=== PATIENT | female | born 1950 | race Caucasian/White ===

== ENCOUNTER 2019-02-07 10:48 | Emergency (ER) | payer OTHER ==
[2019-02-07] MEDS ORDERED: ValACYclovir (*) 1 GM TAB PO ONE (11:10)
[2019-02-07] MEDS ORDERED: predniSONE TAB* 50 MG PO ONE (11:11)
--- NOTE | 2019-02-07 11:26 | ED ---
Neurological HPI - HPI Summary HPI Summary: Time seen by provider: [id number]. The patient is a 68 y/o F presenting to [facility] with a chief complaint of sudden onset right facial droop noticed at 0500 this morning. She states she woke up this morning with a crooked mouth, and she was okay when she went to bed last night. 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 She additionally has a swollen eye, but she didn't notice that earlier today before getting to work. No other neurological deficits at this time. Nonsmoker, occasional EtOH, no substance use. - History of Current Complaint Chief Complaint: EDNeurologicalDeficit Stated Complaint: POSS STROKE PER PT Hx Obtained From: Patient Onset/Duration: Sudden Onset, Started hours ago - at 0500 this morning, Still Present Onset Severity: Mild Current Severity: Mild Pain Intensity: 0 Pain Scale Used: 0-10 Numeric Character: Other: - right facial droop Aggravating: Nothing Alleviating: Nothing Associated Signs and Symptoms: Negative: Weakness - Additional Pertinent History Primary Care Physician: DEIRDRE - Allergy/Home Medications Allergies/Adverse Reactions: Allergies Allergy/AdvReac Type Severity Reaction Status Date / Time No Known Allergies Allergy Verified 02/07/19 10:52 Home Medications: Home Medications Insulin NPH Hum/Reg Insulin Hm [Novolin 70-30 Flexpen] 100 unit SQ BID 02/07/19 [History Confirmed 02/07/19] Liraglutide (NF) [Victoza (NF)] 1.2 mg SUBCUT DAILY 02/07/19 [History Confirmed 02/07/19] amLODIPine TAB* [Norvasc 5 mg TAB*] 5 mg PO DAILY 02/07/19 [History Confirmed ] PMH/Surg Hx/FS Hx/Imm Hx Endocrine/Hematology History: Reports: Hx Diabetes - TYPE 2 Denies: Hx Bone Marrow Disease, Hx Sickle Cell Disease, Hx Anemia Cardiovascular History: Reports: Hx Hypertension - ON MEDS GI History: Reports: Hx Gall Bladder Disease - galbladder out february 2014 Denies: Other GI Disorders Musculoskeletal History: Denies: Hx Osteoporosis Sensory History: Reports: Hx Contacts or Glasses - GLASSES Denies: Hx Deafness, Hx Hearing Aid Opthamlomology History: Reports: Hx Contacts or Glasses - GLASSES - Cancer History Hx Chemotherapy: No Hx Radiation Therapy: No - Surgical History Surgery Procedure, Year, and Place: 2009, HYSTERECTOMY, [facility] Hx Anesthesia Reactions: No Infectious Disease History: No Infectious Disease History: Denies: Traveled Outside the [place] in Last 30 Days - Family History Known Family History: Negative: Cardiac Disease, Hypertension, Diabetes - Social History Alcohol Use: None Alcohol Amount: 1-2 PER WEEK Hx Substance Use: No Substance Use Type: Reports: None Hx Tobacco Use: No Smoking Status (MU): Never Smoked Tobacco Do You Chew or Dip Tobacco: No Have You Chewed or Dipped Tobacco in the LAST YEAR: No Have You Smoked in the Last Year: No Review of Systems Positive: Other - swelling of eye Neurological: Other - slight right facial droop Negative: Weakness All Other Systems Reviewed And Are Negative: Yes Physical Exam - Summary Physical Exam Summary: VITAL SIGNS: Reviewed. GENERAL: Patient is a well-developed and nourished female who is lying comfortable in the stretcher. Patient is not in any acute respiratory distress. HEAD AND FACE: No signs of trauma. No ecchymosis, hematomas or skull depressions. No sinus tenderness. EYES: PERRLA, EOMI x 2, No injected conjunctiva, no nystagmus. No photophobia. EARS: Hearing grossly intact. Ear canals and tympanic membranes are within normal limits. MOUTH: Oropharynx within normal limits. NECK: Supple, trachea is midline, no adenopathy, no JVD, no carotid bruit, no c- spine tenderness, neck with full ROM. No meningeal signs, no Kernig's or brudzinskis signs. CHEST: Symmetric, no tenderness at palpation LUNGS: Clear to auscultation bilaterally. No wheezing or crackles. CVS: Regular rate and rhythm, S1 and S2 present, no murmurs or gallops appreciated. ABDOMEN: Soft, non-tender. No signs of distention. No rebound no guarding, and no masses palpated. Bowel sounds are normal. EXTREMITIES: FROM in all major joints, no edema, no cyanosis or clubbing. NEURO: Alert and oriented x 3. Right facial paralysis but no other acute neurological deficits. Speech is normal and follows commands. SKIN: Dry and warm. GCS: 15. Triage Information Reviewed: Yes Vital Signs On Initial Exam: Initial Vitals Temp Pulse Resp BP Pulse Ox 98.3 F 117 18 143/95 99 02/07/19 10:50 02/07/19 10:50 02/07/19 10:50 02/07/19 10:50 02/07/19 10:50 Vital Signs Reviewed: Yes - [place] Coma Scale Best Eye Response: 4 - Spontaneous Best Motor Response: 6 - Obeys Commands Best Verbal Response: 5 - Oriented Coma Scale Total: 15 Diagnostics - Vital Signs Vital Signs Temp Pulse Resp BP Pulse Ox 02/07/19 10:50 98.3 F 117 18 143/95 99 - Laboratory Result Diagrams: 02/07/19 11:23 02/07/19 11:23 Lab Statement: Any lab studies that have been ordered have been reviewed, and results considered in the medical decision making process. - CT Brain CT CT Interpretation Completed By: Radiologist Summary of CT Findings: No acute intracranial pathology. Chronic small vessel ischemic change. ED physician has reviewed this report. NIH Scale - NIH Scale Level of Consciousness: Alert/Keenly Responsive Ask Patient the Month and His/Her Age: Both Correct Ask Pt to Open/Close Eyes and Account General Manager/Release Non-Paretic Hand: Both Correctly Best Gaze (Only Horizontal Eye Movement): Normal Visual Field Testing: No Visual Loss Facial Paresis-Pt to Smile & Close Eyes or Grimace Symmetry: Normal/Symmetrical Motor Function - Right Arm: No Drift-Holds 10 Seconds Motor Function - Left Arm: No Drift-Holds 10 Seconds Motor Function - Right Leg: No Drift-Holds 10 Seconds Motor Function - Left Leg: No Drift-Holds 10 Seconds Limb Ataxia-Must be out of Proportion to Weakness Present: Absent Sensory (Use Pinprick to Test Arms/Legs/Trunk/Face): Normal Best Language (Describe Picture, Name Items): No Aphasia Dysarthria (Read Several Words): Normal Extinction and Inattention: No Abnormality Total Score: 0 Re-Evaluation - Re-Evaluation First Eval Re-Evaluation Time: 13:13 Change: Unchanged Comment: I discussed the results with the patient and discharge home. Course/Dx - Course Assessment/Plan: The patient is a 68 y/o F presenting to [facility] with a chief complaint of sudden onset right facial droop noticed at 0500 this morning. She states she woke up this morning with a crooked mouth, and she was okay when she went to bed last night. 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 She additionally has a swollen eye, but she didn't notice that earlier today before getting to work. No other neurological deficits at this time. Nonsmoker, occasional EtOH, no substance use. Test results without any significant abnormality. Head CT impression: No acute interconnected pathology. Chronic small vessel ischemic changes. Therefore, I believe that the patient has [place] palsy. Therefore the patient was placed on the Valtrex, and Prednisone. The patient also was given an eye patch. At this point I discussed all the findings and test results with the patient. She was instructed to return to the emergency room immediately if any of the symptoms return or worsens. They understand and agree. Neurological exam before discharge : Patient is alert and oriented x3. No acute neurological deficits. Patient vital signs are stable. Patient is to follow up with [facility] in the next 2 3 days. They understand and agree. Plan of care was discussed with the patient, and patient understands and agrees with the plan of care. All questions were answered at patient satisfaction. There were no further complaints or concerns. - Diagnoses Provider Diagnoses: Montes's palsy Discharge - Sign-Out/Discharge Documenting (check all that apply): Patient Departure - Patient will be discharged home. Patient Received Moderate/Deep Sedation with Procedure: No - Discharge Plan Condition: Stable Disposition: HOME Prescriptions: predniSONE TAB* [Deltasone 20 MG TAB*] 60 mg PO DAILY #15 tab ValACYclovir (*) [Valtrex 1 GM(*)] 1 gm PO BID #14 tab Patient Education Materials: Montes Palsy (ED) Referrals: Nivia Castillo MD [Primary Care Provider] - 3 Days Additional Instructions: Please take medication as prescribed. Follow up with your primary care provider in 2-3 days. RETURN TO THE EMERGENCY DEPARTMENT FOR ANY NEW OR WORSENING SYMPTOMS. - Billing Disposition and Condition Condition: STABLE Disposition: Home - Attestation Statements Document Initiated by Eliibe: Yes Documenting Scribe: Ronel Fallon Provider For Whom Jada is Documenting (Include Credential): Dr. Pratik Hernandez MD Scribe Attestation: Ronel Bernal scribed for Dr. Pratik Hernandez MD on 02/07/19 at 1550. Scribe Documentation Reviewed: Yes Provider Attestation: The documentation as recorded by the Ronel amaral accurately reflects the service I personally performed and the decisions made by me, Dr. Pratik Hernandez MD Status of Scribe Document: Viewed
--- OUTSIDE RECORDS SUMMARY | 2019-02-07 11:35 | XMS REPORT | Continuity of Care Document ---
:1950 External Reference #:[id number] Author Name Lashawn Shah Care Team Providers Name Role Phone Nivia Luther MD Primary Care Physician Unavailable Payers Date Identification Numbers Payment Provider Subscriber Expires: 2018 Policy Number: [id number] Medicare Maile Milner PayID: [id number] [address] [place] [address] Policy Number: [id number] [facility] Maile Milner Group Number: [id number] [address] PayID: [id number] [place] [address] Effective: 2014 Policy Number: [id number] [employer] Maile Milner Expires: 2017 PayID: [id number] [address] [address] [place] [address] Advance Directives Description No Information Available Problems Description No Information Family History Date Family Member(s) Observation Comments General Unknown pt was adopted, any family history listed is non-biological Father due to [place] () - in his 50's Siblings 1 1 biological brother of [place] at age 57. 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[employer] [place] ETOH Use Rarely consumes alcohol Tobacco Use Start: Unknown Patient has never smoked Recreational Drug Use Denies Drug Use Smoking Status Reviewed: 01/13/19 Patient has never smoked Exercise Type/Frequency Exercises regularly walks daily for work Allergies, Adverse Reactions, Alerts Description No Known Drug Allergies Medications Active Medications SIG Qnty Indications Ordering Date Provider Novolin 70/30 inject subcutaneously 15ml E11.9 Zaldivarjanett Grant, 01/13/2019 Flexpen 30 minutes before MD breakfast 32 units (70-30)100Unit/ML and 30 minutes before Supn 2nd meal 16 units Enalapril Maleate Take 2 tablets by 180tabs E11.9 [facility], 01/13/2019 mouth daily MD 20mg Tablets Pioglitazone HCL 1 by mouth every day 90tabs E11.9 [facility], 12/13/2018 MD 15mg Tablets Amlodipine Besylate 1 by mouth every day 90tabs E11.9 [facility], 2018 MD 5mg Tablets Victoza inject 1.8 mg once 27ml E11.9 [facility], 11/29/2018 18mg/3ML daily. Solution Pen-Inject Atorvastatin take one tablet daily 90tabs E11.9 [facility], 11/29/2018 Calcium at night. Replaces 40mg script for Tablets Atorvastatin 10 mg Lantus Solostar 46 units daily [facility], 10/26/2018 100Unit/ML Solution Pen-Inject Accu-Chek Soft use twice daily to Unknown Touch Lancets check Blood sugar Misc BD Pen use 1 time daily with Unknown Needle/Mini/Ultra-F basaglar ine/31G X 5mm 31G X 5 mm Misc Freestyle Lite Test test blood sugar 3 300units Zaldivar [facility], times daily and as MD Strips needed Freestyle Lite test blood sugar 3 Unknown Blood Glucose times daily and as Monitoring System needed Device Omeprazole 1 by mouth every day Unknown 40mg Capsules DR Bibiana Seniorokana Take one 90tabs E11.9 Zen Grant MD 12/13/2018 - 100mg Tablets tablet by 12/15/2018 mouth daily Atorvastatin Calcium take 1 tablet 90tabs E11.9 Zen Grant MD 2018 - 10mg Tablets by mouth at 11/29/2018 bedtime Enalapril Maleate 1 by mouth E11.9 Unknown - 20mg every day 01/13/2019 Glipizide 1 by mouth Unknown - 10mg twice a day 12/12/2018 Hydrochlorothiazide 1 by mouth Unknown - every day 11/28/2018 Percocet 1-2 by mouth 30tabs Priya Junior, - 5-325mg Tablets every 6 hours M.D. 11/28/2018 as needed pain Simvastatin 1 by mouth E11.9 Unknown - 20mg Tablets every day 11/29/2018 Immunizations Description No Information Available Vital Signs Date Vital Result Comment 01/13/2019 9:16am Height 62 inches 5'2" Weight 148.00 lb w/o shoes Heart Rate 87 /min BP Systolic Sitting 143 mmHg BP Diastolic Sitting 88 mmHg BMI (Body Mass Index) 27.1 kg/m2 12/13/2018 9:50am Height 62 inches 5'2" Weight 147.00 lb w/ shoes Heart Rate 88 /min BP Systolic Sitting 152 mmHg BP Diastolic Sitting 91 mmHg BMI (Body Mass Index) 26.9 kg/m2 11/29/2018 9:57am Height 62 inches 5'2" Weight 146.00 lb w/ shoes Heart Rate 115 /min BP Systolic Sitting 157 mmHg BP Diastolic Sitting 91 mmHg BP Systolic Recheck 132 mmHg BP Diastolic Recheck 82 mmHg BMI (Body Mass Index) 26.7 kg/m2 02/04/2016 9:54am Height 62 inches 5'2" Weight 150.00 lb Pain Level 1 BMI (Body Mass Index) 27.4 kg/m2 01/03/2016 10:49am Height 62 inches 5'2" Weight 150.00 lb Respiratory Rate 16 /min Pain Level 3 BMI (Body Mass Index) 27.4 kg/m2 12/03/2015 10:55am Height 62 inches 5'2" Weight 150.00 lb Pain Level 1 BMI (Body Mass Index) 27.4 kg/m2 11/12/2015 9:09am Height 62 inches 5'2" Weight 150.00 lb Heart Rate 68 /min BP Systolic Sitting 146 mmHg BP Diastolic Sitting 80 mmHg Respiratory Rate 16 /min Body Temperature 97.6 F Pain Level 5 BMI (Body Mass Index) 27.4 kg/m2 Results Test Date Facility Test Result H/L Range Note Laboratory test finding 12/13/2018 [facility] Glucose Random 291 Hemoglobin A1c 12.9 High 5-7 Laboratory test finding 11/29/2018 [facility] Glucose Random 353 Ketones 0.4 Procedures Date Code Description Status 11/27/2017 29471980 Colonoscopy Completed 11/03/2015 93102 Open TX Proximal Humeral FX Incl Fixation When Completed Performed 11/03/2015 91658 Open TX Proximal Humeral FX Incl Fixation When Completed Performed 02/17/2014 73286 EKG, Interpretation Only Completed 02/17/2014 05531 Cholecystectomy W/Cholangiography Completed Encounters Type Date Location Provider Dx Diagnosis Office Visit 12/13/2018 [facility], E11.9 Type 2 diabetes 10:30a [facility] mellitus without complications I10 Essential (primary) hypertension Office Visit 11/29/2018 [facility] Sandra E11.9 Type 2 diabetes 10:30a [facility], [facility] mellitus without [facility] complications E78.5 Hyperlipidemia, unspecified K21.9 Gastro-esophageal reflux disease without esophagitis Z68.26 Body mass index (BMI) 26.0-26.9, adult Office Visit 11/02/2015 7:00a [facility] S42.361A [facility] segmental fx C.M.A. shaft of humerus, right arm, init S42.201A Unsp fracture of upper end of right humerus, init Plan of Treatment 01/13/2019 - Sandra [facility], RPA-CE11.9 Type 2 diabetes mellitus without complicationsNew Medication:Novolin 70/30 Flexpen (70-30)100 Unit/ML - inject subcutaneously 30 minutes before breakfast 32 units and 30 minutes before 2nd meal 16 unitsEnalapril Maleate 20 mg - Take 2 tablets by mouth dailyRecommendations:- Stop Lantus when you start the Novolin - Take Novolin 1/ 2 hour before breakfast and 1/2 hour before 2nd meal + start with 32 units in morning + 16 units later in day - Call me with blood sugars fasting in the morning and then 2 hours after last meal - Check blood sugar if you don'tfeel well. Call if you have a blood sugar below 70 mg/dL - Goal is morning blood sugar less than 140mg/dL each day and evening blood sugar less than 160 mg/dL. - Increase Victoza to 1.8 mg each day. -Increase Enalapril to 40 mg daily - Recheck cholesterol about . - Schedule eye exam. - Follow up in 3 months either in clinic or by [id number] Essential (primary) mqeybrwucmysZ28.5 Hyperlipidemia, unspecified
[2019-02-07 11:44] LABS: ABS Basophils 0.1 10^3/ul (0-0.2); ABS Monocytes 0.8 10^3/ul (0-0.8); Eosinophil % 0.6 %; Hematocrit 43 % (35-47); Hemoglobin 14.6 g/dL (12.0-16.0); Lymphocyte % 33.4 %; Mean Corpuscular HGB Conc 34 g/dL (31-36); Mean Corpuscular Hemoglobin 30 pg (27-31); Mean Corpuscular Volume 89 fL (80-97); Nucleated Red Blood Cells % 0.1; Platelet Count 227 10^3/uL (150-450); Red Blood Count 4.86 10^6 /uL (3.70-4.87); Red Cell Distribution Width 13 % (10.5-15); White Blood Count 8.9 10^3/uL (3.5-10.8)
[2019-02-07 11:50] LABS: Albumin 4.3 g/dL (3.2-5.2); Calcium 9.9 mg/dL (8.6-10.3); EGFR African American 95.6 (>60); Globulin 4.2 g/dL (2-4); Potassium 3.7 mmol/L (3.5-5.0); Total Bilirubin 0.7 mg/dL (0.2-1.0); Total Protein 8.5 g/dL (6.4-8.9)
[2019-02-07 13:36] VITALS: BP 129/85
[2019-02-07] MEDS ORDERED: ValACYclovir (*) 1 GM TAB PO SCH (21:00)
== END 2019-02-07 13:35 | disposition home or self-care (01) ==
LOC: ED 10:48
DX: G51.0 Bell's palsy (principal); R22.0 Localized swelling, mass and lump, head; E11.9 Type 2 diabetes mellitus without complications; I10 Essential (primary) hypertension; Z87.19 Personal history of other diseases of the digestive system
CPT/HCPCS: 36415; 70450; 80053; 85025; 86618; 99283; A9270-GY; J7512